=== PATIENT | female | born 1955 | race African-American/Black ===

== ENCOUNTER 2019-07-07 14:10 | Emergency (ER) | payer MEDICARE ==
[~2019-07-07] VITALS: Ht 172.7 cm; Wt 80.0 kg
[2019-07-07 16:08] LABS: BASOPHILS % 0.4 % (0.0-2.0); EOSINOPHILS % 5.8 % (0.0-5.0); LYMPHOCYTES % 29.4 % (20.0-50.0); MEAN CORPUSCULAR HEMOGLOBIN 25.5 pg (28.0-32.0); MEAN CORPUSCULAR VOLUME 78.7 fL (81.0-99.0); MEAN PLATELET VOLUME 8.2 fl (7.4-10.4); MONOCYTES % 5.9 % (2.0-8.0); NEUTROPHILS % 58.5 % (40.0-76.0); PLATELET 577 x1000/uL (130-400)
[2019-07-07 16:10] LABS: CHLORIDE 105 mEq/L (98-107)
[2019-07-07 18:44] VITALS: BP 135/86
== END 2019-07-07 18:44 | disposition home or self-care (01) ==
LOC: ER 14:10
DX: M48.061 Spinal stenosis, lumbar region without neurogenic claudication (principal); J45.909 Unspecified asthma, uncomplicated; I10 Essential (primary) hypertension; Z87.01 Personal history of pneumonia (recurrent); Z88.0 Allergy status to penicillin; Z88.2 Allergy status to sulfonamides; Z88.8 Allergy status to other drugs, medicaments and biological substances; Z88.1 Allergy status to other antibiotic agents
CPT/HCPCS: 36415; 71045; 72148; 80053; 83880; 84484; 85025; 93005; 99285